=== PATIENT | male | born 1990 | race Caucasian/White ===

== ENCOUNTER 2017-12-02 21:30 | Emergency (ER) | payer OTHER ==
[2017-12-02 21:35] VITALS: BP 122/77; PULSE 87; RESP 18; TEMP 98.2; O2SAT 99
[2017-12-02] MEDS ORDERED: AMOX875T PO (22:28)
[2017-12-02] MEDS ORDERED: AMOXICILLIN 875 MG TAB PO ONE (22:30)
[2017-12-02] MEDS ORDERED: IBUPROFEN 800 MG TAB PO ONE (22:30)
[2017-12-02 22:31] LABS: AUTOMATED NEUTROPHIL # 6.8 TH/MM3 (1.8-7.7); BASOPHIL % 0.5 % (0.0-2.0); EOSINOPHIL # 0.1 TH/MM3 (0-0.4); EOSINOPHIL % 1.5 % (0.0-4.0); HEMATOCRIT 44.1 % (39.0-51.0); HEMOGLOBIN 15.2 GM/DL (13.0-17.0); LYMPH % 22.8 % (9.0-44.0); LYMPHOCYTE # 2.3 TH/MM3 (1.0-4.8); MEAN CELL VOLUME 88.5 FL (80.0-100.0); MEAN CORPUSCULAR HEMOGLOBIN 30.4 PG (27.0-34.0); MEAN CORPUSCULAR HGB CONC 34.4 % (32.0-36.0); MEAN PLATELET VOLUME 6.8 FL (7.0-11.0); MONO % 6.7 % (0.0-8.0); MONOCYTE # 0.7 TH/MM3 (0-0.9); NEUT % 68.5 % (16.0-70.0); PLATELET COUNT 400 TH/MM3 (150-450); RED BLOOD COUNT 4.99 MIL/MM3 (4.50-5.90); RED CELL DISTRIBUTION WIDTH 13.3 % (11.6-17.2)
--- NOTE | 2017-12-02 22:32 | PD ---
HPI Chief Complaint: Psychiatric Symptoms Time Seen by Provider: 22:20 Travel History International Travel<30 days: No Contact w/Intl Traveler<30days: No Traveled to known affect area: No History of Present Illness HPI 27-year-old male presents under Meyer act initiated by the [employer]. According to his paperwork the patient made suicidal statements as well as vague statements about harming others. The patient reports that he has a history of heroin abuse. He has sister has been concerned because he does not want to quit using drugs and so he says that his sister made up the story in order to get him hospitalized for detoxification purposes. He denies any suicidal or homicidal ideation. Admits to heroin abuse. His only medical complaint at this time is of dental pain which has been going on for several days but was worse today after eating peanuts. He has no other complaints at this time. PFSH Past Medical History ?: Not Social History Alcohol Use: Yes Tobacco Use: Yes Substance Use: Yes Allergies-Medications (Allergen,Severity, Reaction): Coded Allergies: No Known Allergies (Verified Allergy, Unknown, 12/02/17) Reported Meds & Prescriptions Reported Meds & Active Scripts Active Amoxicillin 875 Mg Tab 875 Mg PO BID 7 Days Review of Systems Except as stated in HPI: all other systems reviewed are Neg Physical Exam Narrative GENERAL: Well-developed well-nourished male in no acute distress SKIN: Warm and dry. Track yoon noted on the arms. HEAD: Atraumatic. Normocephalic. EYES: Pupils equal and round. No scleral icterus. No injection or drainage. ENT: No nasal bleeding or discharge. Mucous membranes pink and moist. Multiple areas of dental decay noted. NECK: Trachea midline. No JVD. CARDIOVASCULAR: Regular rate and rhythm. No murmur appreciated. RESPIRATORY: No accessory muscle use. Clear to auscultation. Breath sounds equal bilaterally. GASTROINTESTINAL: Abdomen soft, non-tender, nondistended. Hepatic and splenic margins not palpable. MUSCULOSKELETAL: No obvious deformities. No clubbing. No cyanosis. No edema. NEUROLOGICAL: Awake and alert. No obvious cranial nerve deficits. Motor grossly within normal limits. Normal speech. PSYCHIATRIC: Appropriate mood and affect; insight and judgment normal. Data Data Last Documented VS Vital Signs Date Time Temp Pulse Resp B/P (MAP) Pulse Ox O2 Delivery O2 Flow Rate FiO2 12/02/17 21:35 98.2 87 18 122/77 (92) 99 Orders Orders Complete Blood Count With Diff (12/02/17 21:36) Comprehensive Metabolic Panel (12/02/17 21:36) Thyroid Stimulating Hormone (12/02/17 21:36) Psych Screen (12/02/17 21:36) Drug Screen, Random Urine (12/02/17 21:36) Alcohol (Ethanol) (12/02/17 21:36) Salicylates (Aspirin) (12/02/17 21:36) Tylenol (Acetaminophen) (12/02/17 21:36) Amoxicillin (Trimox) (12/02/17 22:30) Ibuprofen (Motrin) (12/02/17 22:30) Clonidine (Catapres) (12/03/17 00:00) Lorazepam Inj (Ativan Inj) (12/03/17 00:00) Ondansetron Odt (Zofran Odt) (12/03/17 00:00) Labs Laboratory Tests Test 12/02/17 21:50 White Blood Count 10.0 TH/MM3 Red Blood Count 4.99 MIL/MM3 Hemoglobin 15.2 GM/DL Hematocrit 44.1 % Mean Corpuscular Volume 88.5 FL Mean Corpuscular Hemoglobin 30.4 PG Mean Corpuscular Hemoglobin Concent 34.4 % Red Cell Distribution Width 13.3 % Platelet Count 400 TH/MM3 Mean Platelet Volume 6.8 FL Neutrophils (%) (Auto) 68.5 % Lymphocytes (%) (Auto) 22.8 % Monocytes (%) (Auto) 6.7 % Eosinophils (%) (Auto) 1.5 % Basophils (%) (Auto) 0.5 % Neutrophils # (Auto) 6.8 TH/MM3 Lymphocytes # (Auto) 2.3 TH/MM3 Monocytes # (Auto) 0.7 TH/MM3 Eosinophils # (Auto) 0.1 TH/MM3 Basophils # (Auto) 0.0 TH/MM3 CBC Comment DIFF FINAL Differential Comment Blood Urea Nitrogen 12 MG/DL Creatinine 1.27 MG/DL Random Glucose 95 MG/DL Total Protein 8.7 GM/DL Albumin 3.9 GM/DL Calcium Level 9.2 MG/DL Alkaline Phosphatase 83 U/L Aspartate Amino Transf (AST/SGOT) 14 U/L Alanine Aminotransferase (ALT/SGPT) 20 U/L Total Bilirubin 0.5 MG/DL Sodium Level 138 MEQ/L Potassium Level 3.7 MEQ/L Chloride Level 100 MEQ/L Carbon Dioxide Level 27.3 MEQ/L Anion Gap 11 MEQ/L Estimat Glomerular Filtration Rate 68 ML/MIN Thyroid Stimulating Hormone 3rd Gen 0.614 uIU/ML Salicylates Level LESS THAN 1.7 MG/DL Urine Opiates Screen POS Acetaminophen Level LESS THAN 2.0 MCG/ML Urine Barbiturates Screen NEG Urine Amphetamines Screen NEG Urine Benzodiazepines Screen NEG Urine Cocaine Screen POS Urine Cannabinoids Screen POS Ethyl Alcohol Level LESS THAN 3 MG/DL MDM Medical Decision Making Medical Screen Exam Complete: Yes Emergency Medical Condition: Yes Medical Record Reviewed: Yes Differential Diagnosis Opiate addiction versus acute psychosis versus major depressive disorder versus substance-induced mood disorder Narrative Course Mental health screening discussed with the patient. Psychiatric screen ordered. The patient has significant dental decay and most of his teeth and ultimately he will require extraction of all of his teeth by the dentist. He will be started on amoxicillin. Lab work has been reviewed. Drug screen is positive for opiates, cocaine and cannabinoids. He is medically cleared for psychiatric disposition. Diagnosis Primary Impression: Medical clearance for psychiatric admission Additional Impression: Dental caries Scripts Amoxicillin (Amoxicillin) 875 Mg Tab 875 MG PO BID for Infection for 7 Days, #14 TAB 0 Refills Prov: Eduardo Velasco MD 12/02/17 Tyron Shirley Dec 02, 2017 22:32
[2017-12-02 23:31] LABS: ALBUMIN 3.9 GM/DL (3.4-5.0); ALKALINE PHOSPHATASE 83 U/L (45-117); BLOOD UREA NITROGEN 12 MG/DL (7-18); CALCIUM 9.2 MG/DL (8.5-10.1); CREATININE 1.27 MG/DL (0.60-1.30); GLOMERULAR FILTRATION RATE 68 ML/MIN (>89); GLUCOSE,RANDOM 95 MG/DL (74-106); TOTAL PROTEIN 8.7 GM/DL (6.4-8.2)
[2017-12-02 23:32] LABS: ACETAMINOPHEN LESS THAN 2.0 MCG/ML (10.0-30.0); ALT (GPT) 20 U/L (12-78); AST (GOT) 14 U/L (15-37); BICARBONATE 27.3 MEQ/L (21.0-32.0); CHLORIDE 100 MEQ/L (98-107); SODIUM (NA) 138 MEQ/L (136-145); TOTAL BILIRUBIN ADULT 0.5 MG/DL (0.2-1.0)
[2017-12-03] MEDS ORDERED: ONDANSETRON ODT 4 MG TAB PO ONE
[2017-12-03] MEDS ORDERED: LORazepam 2 MG/ML VIAL IM ONE
[2017-12-03] MEDS ORDERED: cloNIDine HCL 0.1 MG TAB PO ONE
[2017-12-03 04:22] VITALS: BP 93/56; PULSE 65; RESP 16; O2SAT 97
[2017-12-03 06:56] VITALS: BP 99/56; PULSE 75; RESP 16; O2SAT 97
[2017-12-03] MEDS ORDERED: LORazepam 2 MG TAB PO PRN (07:15)
[2017-12-03] MEDS ORDERED: FLUMAZENIL 0.5 MG/5 ML VIAL IV PUSH PRN (07:15)
[2017-12-03] MEDS ORDERED: LORazepam 2 MG/ML VIAL IV PUSH PRN ×4 (07:15)
[2017-12-03] MEDS ORDERED: LORazepam 1 MG TAB PO PRN (07:15)
--- NOTE | 2017-12-03 11:00 | PD ---
Physical Exam Date Seen by Provider: Dec 03, 2017 Time Seen by Provider: 10:56 Narrative 27-year-old male previously cleared under the Meyer act for psychiatric evaluation. Patient was noted to have dental infection requiring amoxicillin. Patient has been seen by Dr. Maria, the psychiatrist on-call and cleared of his Meyer act. He is deemed psychiatrically stable for discharge at this time. Patient will be continued on his amoxicillin 875 twice daily as prescribed. Psychiatric follow-up will be based on Dr. Maria's note. Data Data Last Documented VS Vital Signs Date Time Temp Pulse Resp B/P (MAP) Pulse Ox O2 Delivery O2 Flow Rate FiO2 12/03/17 11:44 12/03/17 06:56 75 16 97 Room Air 12/02/17 21:35 98.2 Orders Orders Complete Blood Count With Diff (12/02/17 21:36) Comprehensive Metabolic Panel (12/02/17 21:36) Thyroid Stimulating Hormone (12/02/17 21:36) Psych Screen (12/02/17 21:36) Drug Screen, Random Urine (12/02/17 21:36) Alcohol (Ethanol) (12/02/17 21:36) Salicylates (Aspirin) (12/02/17 21:36) Tylenol (Acetaminophen) (12/02/17 21:36) Amoxicillin (Trimox) (12/02/17 22:30) Ibuprofen (Motrin) (12/02/17 22:30) Clonidine (Catapres) (12/03/17 00:00) Lorazepam Inj (Ativan Inj) (12/03/17 00:00) Ondansetron Odt (Zofran Odt) (12/03/17 00:00) Alcohol Withdrawal Asmt-Ciwa [id number] (12/03/17 07:08) Flumazenil Inj (Romazicon Inj) (12/03/17 07:15) Lorazepam (Ativan) (12/03/17 07:15) Lorazepam Inj (Ativan Inj) (12/03/17 07:15) Lorazepam (Ativan) (12/03/17 07:15) Lorazepam Inj (Ativan Inj) (12/03/17 07:15) Lorazepam Inj (Ativan Inj) (12/03/17 07:15) Lorazepam Inj (Ativan Inj) (12/03/17 07:15) Ed Discharge Order (12/03/17 11:04) Labs Laboratory Tests Test 12/02/17 21:50 White Blood Count 10.0 TH/MM3 Red Blood Count 4.99 MIL/MM3 Hemoglobin 15.2 GM/DL Hematocrit 44.1 % Mean Corpuscular Volume 88.5 FL Mean Corpuscular Hemoglobin 30.4 PG Mean Corpuscular Hemoglobin Concent 34.4 % Red Cell Distribution Width 13.3 % Platelet Count 400 TH/MM3 Mean Platelet Volume 6.8 FL Neutrophils (%) (Auto) 68.5 % Lymphocytes (%) (Auto) 22.8 % Monocytes (%) (Auto) 6.7 % Eosinophils (%) (Auto) 1.5 % Basophils (%) (Auto) 0.5 % Neutrophils # (Auto) 6.8 TH/MM3 Lymphocytes # (Auto) 2.3 TH/MM3 Monocytes # (Auto) 0.7 TH/MM3 Eosinophils # (Auto) 0.1 TH/MM3 Basophils # (Auto) 0.0 TH/MM3 CBC Comment DIFF FINAL Differential Comment Blood Urea Nitrogen 12 MG/DL Creatinine 1.27 MG/DL Random Glucose 95 MG/DL Total Protein 8.7 GM/DL Albumin 3.9 GM/DL Calcium Level 9.2 MG/DL Alkaline Phosphatase 83 U/L Aspartate Amino Transf (AST/SGOT) 14 U/L Alanine Aminotransferase (ALT/SGPT) 20 U/L Total Bilirubin 0.5 MG/DL Sodium Level 138 MEQ/L Potassium Level 3.7 MEQ/L Chloride Level 100 MEQ/L Carbon Dioxide Level 27.3 MEQ/L Anion Gap 11 MEQ/L Estimat Glomerular Filtration Rate 68 ML/MIN Thyroid Stimulating Hormone 3rd Gen 0.614 uIU/ML Salicylates Level LESS THAN 1.7 MG/DL Urine Opiates Screen POS Acetaminophen Level LESS THAN 2.0 MCG/ML Urine Barbiturates Screen NEG Urine Amphetamines Screen NEG Urine Benzodiazepines Screen NEG Urine Cocaine Screen POS Urine Cannabinoids Screen POS Ethyl Alcohol Level LESS THAN 3 MG/DL [facility] Medical Record Reviewed: Yes Supervised Visit with LETI: Yes Narrative Course 27-year-old male previously cleared under the Meyer act for psychiatric evaluation. Patient was noted to have dental infection requiring amoxicillin. Patient has been seen by Dr. Maria, the psychiatrist on-call and cleared of his Meyre act. He is deemed psychiatrically stable for discharge at this time. Patient will be continued on his amoxicillin 875 twice daily as prescribed. Psychiatric follow-up will be based on Dr. Maria's note. Diagnosis Primary Impression: Medical clearance for psychiatric admission Additional Impression: Dental caries Patient Instructions: Dental Caries (DC), General Instructions Additional Instruction: Patient will be continued on his amoxicillin 875 twice daily as prescribed. Med/Other Pt SpecificInfo: Prescription(s) given Scripts Amoxicillin (Amoxicillin) 875 Mg Tab 875 MG PO BID for Infection for 7 Days, #14 TAB 0 Refills Prov: Eduardo Velasco MD 12/03/17 Disposition: 01 DISCHARGE HOME Condition: Stable Guillermo Mello Dec 03, 2017 11:00
[2017-12-03] MEDS ORDERED: AMOX875T PO (11:01)
--- NOTE | 2017-12-03 14:04 | PD.PSY.CON ---
Provisional Diagnosis Admission Date Wharton I. Substance induced mood, disorder, cocaine heroine use disorder Wharton II. Deferred Wharton III. No significant medical history History of Present Illness Service Psychiatry Consult Requested By ER Reason for Consult Under Meyer act Primary Care Physician No Primary Care Physician HPI The patient was seen this morning at about 9 AM. The patient is 27-year-old man, domiciled in [facility] with his mother, single, unemployed, with psychiatric history of cocaine and heroine use disorder , no previous psychiatric hospitalizations, no previous suicidal attempts, he is not a psychotropics, no significant medical history, who presents under Meyer act initiated by the Police Department. According to his paperwork the patient made suicidal statements as well as vague statements about harming others. His sister has been concerned because he does not want to quit using drugs and so he says that his sister made up the story in order to get him hospitalized for detoxification purposes. On psychiatric evaluation the patient is calm, cooperative, he is now clinically sober. The patient reports that his sister lied about his suicidal and homicidal statements just to get hanging in the hospital. He reports good mood, denies anhedonia, denies hopelessness, denies helplessness, denies worthlessness, he denies suicidal or homicidal ideation. He denies visual and auditory hallucinations. The patient is logical, coherent and relevant. There is no loosening of associations, ideas of reference, prominent paranoia or delusions, he is fully oriented 3, with no gross cognitive impairment present. The patient reports daily use of IV heroine, occasional use of cocaine. I offered to the patient to be transferred to a detox facility, but the patient declined. Review of Systems Constitutional: DENIES: Diaphoretic episodes, Fatigue, Fever, Weight gain, Weight loss, Chills, Dizziness, Change in appetite, Night Sweats Endocrine: DENIES: Heat/cold intolerance, Polydipsia, Polyuria, Polyphagia Eyes: DENIES: Blurred vision, Diplopia, Eye inflammation, Eye pain, Vision loss , Photosensitivity, Double Vision Ears, nose, mouth, throat: DENIES: Tinnitus, Hearing loss, Vertigo, Nasal discharge, Oral lesions, Throat pain, Hoarseness, Ear Pain, Running Nose, Epistaxis, Sinus Pain, Toothache, Odynophagia Respiratory: DENIES: Apneas, Cough, Snoring, Wheezing, Hemoptysis, Sputum production, Shortness of breath Cardiovascular: DENIES: Chest pain, Palpitations, Syncope, Dyspnea on Exertion , PND, Lower Extremity Edema, Orthopnea, Claudication Gastrointestinal: DENIES: Abdominal pain, Black stools, Bloody stools, Constipation, Diarrhea, Nausea, Vomiting, Difficulty Swallowing, Anorexia Genitourinary: DENIES: Sexual dysfunction, Urinary frequency, Urinary incontinence, Urgency, Hematuria, Dysuria, Nocturia, Penile Discharge, Testicular Pain, Testicular Swelling Musculoskeletal: DENIES: Joint pain, Muscle aches, Stiffness, Joint Swelling, Back pain, Neck pain Integumentary: DENIES: Abnormal pigmentation, Nail changes, Pruritus, Rash Hematologic/lymphatic: DENIES: Bruising, Lymphadenopathy Immunologic/allergic: DENIES: Eczema, Urticaria Neurologic: DENIES: Abnormal gait, Headache, Localized weakness, Paresthesias, Seizures, Speech Problems, Tremor, Poor Balance Psychiatric: DENIES: Anxiety, Confusion, Mood changes, Depression, Hallucinations, Agitation, Suicidal Ideation, Homicidal Ideation, Delusions Past Family Social History Coded Allergies: No Known Allergies (Verified Allergy, Unknown, 12/03/17) Active Scripts Amoxicillin (Amoxicillin) 875 Mg Tab, 875 MG PO BID for Infection for 7 Days, # 14 TAB 0 Refills Prov:Eduardo Velasco MD 12/03/17 Family Psych History The patient denies family psychiatric history Social History Patient was born and raised in [place], he lives in [facility] with his mother and his sister, is unemployed, single, his highest level of education is high school Patient's Strengths (min. 2) Family support Physical Exam Vital Signs Vital Signs Date Time Temp Pulse Resp B/P (MAP) Pulse Ox O2 Delivery O2 Flow Rate FiO2 12/03/17 11:44 12/03/17 06:56 75 16 97 Room Air 12/02/17 21:35 98.2 Lab Results Test 12/02/17 21:50 White Blood Count 10.0 TH/MM3 Red Blood Count 4.99 MIL/MM3 Hemoglobin 15.2 GM/DL Hematocrit 44.1 % Mean Corpuscular Volume 88.5 FL Mean Corpuscular Hemoglobin 30.4 PG Mean Corpuscular Hemoglobin Concent 34.4 % Red Cell Distribution Width 13.3 % Platelet Count 400 TH/MM3 Mean Platelet Volume 6.8 FL Neutrophils (%) (Auto) 68.5 % Lymphocytes (%) (Auto) 22.8 % Monocytes (%) (Auto) 6.7 % Eosinophils (%) (Auto) 1.5 % Basophils (%) (Auto) 0.5 % Neutrophils # (Auto) 6.8 TH/MM3 Lymphocytes # (Auto) 2.3 TH/MM3 Monocytes # (Auto) 0.7 TH/MM3 Eosinophils # (Auto) 0.1 TH/MM3 Basophils # (Auto) 0.0 TH/MM3 CBC Comment DIFF FINAL Differential Comment Blood Urea Nitrogen 12 MG/DL Creatinine 1.27 MG/DL Random Glucose 95 MG/DL Total Protein 8.7 GM/DL Albumin 3.9 GM/DL Calcium Level 9.2 MG/DL Alkaline Phosphatase 83 U/L Aspartate Amino Transf (AST/SGOT) 14 U/L Alanine Aminotransferase (ALT/SGPT) 20 U/L Total Bilirubin 0.5 MG/DL Sodium Level 138 MEQ/L Potassium Level 3.7 MEQ/L Chloride Level 100 MEQ/L Carbon Dioxide Level 27.3 MEQ/L Anion Gap 11 MEQ/L Estimat Glomerular Filtration Rate 68 ML/MIN Thyroid Stimulating Hormone 3rd Gen 0.614 uIU/ML Salicylates Level LESS THAN 1.7 MG/DL Urine Opiates Screen POS Acetaminophen Level LESS THAN 2.0 MCG/ML Urine Barbiturates Screen NEG Urine Amphetamines Screen NEG Urine Benzodiazepines Screen NEG Urine Cocaine Screen POS Urine Cannabinoids Screen POS Ethyl Alcohol Level LESS THAN 3 MG/DL Mental Status Examination Appearance: Appropriate Consciousness: Alert Orientation: x4 Motor Activity: Normal gait Speech: Unremarkable Language: Adequate Fund of Knowledge: Adequate Attention and Concentration: Adequate Memory: Unremarkable Mood: Appropriate Affect: Appropriate Thought Process & Associations: Intact Thought Content: Appropriate Hallucination Type: None Delusion Type: None Suicidal Ideation: No Suicidal Plan: No Suicidal Intention: No Homicidal Ideation: No Homicidal Plan: No Homicidal Intention: No Insight: Adequate Judgment: Adequate Assessment & Plan Problem List: (1) Substance induced mood disorder ICD Codes: F19.94 - Other psychoactive substance use, unspecified with psychoactive substance-induced mood disorder Assessment & Plan: Psychiatric evaluation today the patient does not present any neuropsychiatric symptoms that require an immediate psychiatric intervention. The patient denies symptomatology of depression, anxiety, susie or psychosis. The patient denies suicidal and homicidal ideation, he denies visual and auditory hallucinations. The patient does not have a clear psychiatric history other than heroine and cocaine use disorder. He denies previous suicidal attempts. Patient does not meet criteria for involuntary psychiatric admission at this moment. He would really benefit of a comprehensive rehabilitation program and detox. I offered this possibility to the patient, but he declined. Meyer act will be lifted Assessment & Plan Estimated LOS: Sanford Angel MD Dec 03, 2017 14:03
== END 2017-12-03 11:56 | disposition home or self-care (01) ==
LOC: NEPD 21:30
DX: F19.94 Other psychoactive substance use, unspecified with psychoactive substance-induced mood disorder (principal); K02.9 Dental caries, unspecified; F14.10 Cocaine abuse, uncomplicated; F12.10 Cannabis abuse, uncomplicated; F11.10 Opioid abuse, uncomplicated; Z72.0 Tobacco use
CPT/HCPCS: 80053; 80307; 84443; 85025; 96372; 96374; 99284; J2060